=== PATIENT | male | born 1955 | race Caucasian/White ===

== ENCOUNTER 2018-07-28 19:00 | Emergency (ER) | payer MEDICAID ==
[~2018-07-28] VITALS: Ht 170.2 cm; Wt 101.0 kg
[~2018-07-28 19:00] MED LIST: AMOX1TAB12 PO; FERR325T18 PO; FURO-92 PO; METO25TA35 PO; POTA20TA14 PO; SULF-169 PO
[2018-07-28 19:36] LABS: BASOPHILS # (AUTO) 0.06 x10^3/uL (0-0.1); BASOPHILS % (AUTO) 1 % (0-1); EOSINOPHILS % (AUTO) 1 % (1-7); LYMPHOCYTES % (AUTO) 18 % (22-44); MD NO; MEAN CORPUSCULAR HEMOGLOBIN 30.1 pg (27.5-34.5); MEAN CORPUSCULAR VOLUME 88.7 fL (81-97); MEAN PLATELET VOLUME 7.8 fL (7.4-10.4); MONOCYTES # (AUTO) 0.69 x10^3/uL (0.2-0.8); MONOCYTES % (AUTO) 7 % (2-9); NEUTROPHILS # (AUTO) 7.56 x10^3/uL (1.8-6.8); NEUTROPHILS % (AUTO) 73 % (42-75); PLATELET COUNT 355 x10^3/uL (130-400); RED BLOOD COUNT 4.61 x10^6/uL (4.38-5.82); RED CELL DISTRIBUTION WIDTH 13.4 % (9.4-14.8)
--- NOTE | 2018-07-28 19:36 | NUR ---
THIS IS A 62 YO MALE WHO PRESENTS TO THE ER C/O HI BP AND KWONG. PT REPORTS KWONG IS DECREASED FROM WHEN HE ARRIVED AND HE IS NO LONGER EXPERIENCING BLURRED VISION. PT HAS BEEN ON A NEW BP MED FROM PCP X 1 DAY. PT AO X 4. SKIN PWD. RESP EVEN AND UNLABORED. PT ON CONT BP AND O2 MONITORS. PT AWARE THAT WE ARE WAITING FOR LAB/IMAGING RESULTS. CALL LIGHT WITHIN REACH. WILL CONT TO MONITOR PT.
[2018-07-28 19:43] LABS: ALBUMIN 3.9 g/dL (3.4-5.0); ANION GAP 8 mmol/L (5-15); CALCIUM 9.5 mg/dL (8.5-10.1); CHLORIDE 105 mmol/L (98-107)
[2018-07-28 19:47] LABS: TROPONIN I < 0.015 ng/mL (0.000-0.045)
--- NOTE | 2018-07-28 20:30 | NUR ---
PT CURRENTLY RESTING ON GURNEY. NAD NOTED. SKIN PWD. RESP EVEN AND EQAUL. PT AWARE THAT WE ARE WAITING FOR RECHECK BY PA. PT DENIES NEEDS AT THIS TIME. CALL LIGHT WITHIN REACH. WILL CONT TO MONITOR PT.
[2018-07-28 20:40] VITALS: BP 144/102
== END 2018-07-28 21:04 | disposition home or self-care (01) ==
LOC: ED 20:28
DX: I83.212 Varicose veins of right lower extremity with both ulcer of calf and inflammation (principal); L97.218 Non-pressure chronic ulcer of right calf with other specified severity; I10 Essential (primary) hypertension; I34.1 Nonrheumatic mitral (valve) prolapse; Z90.89 Acquired absence of other organs
CPT/HCPCS: 36415; 71046; 80048; 82040; 84484; 85025; 93005; 99284

== ENCOUNTER 2019-06-12 09:44 | Emergency (ER) | payer MEDICAID ==
[~2019-06-12] VITALS: Ht 170.2 cm; Wt 99.2 kg
[2019-06-12 10:03] VITALS: BP 169/95
--- NOTE | 2019-06-12 10:12 | NUR ---
PT HERE WITH C/O COUGH X 1 WEEK, STATES NON-PRODUCTIVE. PT STATES HAS INHALER AT HOME AND HAS BEEN USING IT TO NO RELIEF.
--- NOTE | 2019-06-12 10:30 | NUR ---
PT TO XRAY.
--- NOTE | 2019-06-12 10:37 | NUR ---
PT BACK FROM XRAY.
--- NOTE | 2019-06-12 10:51 | NUR ---
ALL RESULTS BACK AT THIS TIME, CHART UP FOR RECHECK.
--- NOTE | 2019-06-12 10:59 | NUR ---
Patient/Caregiver given discharge instructions and they have confirmed that they understand the instructions. Patient ambulatory with steady gait.
== END 2019-06-12 11:18 | disposition home or self-care (01) ==
LOC: ED 11:07
DX: R05 Cough (principal); I10 Essential (primary) hypertension
CPT/HCPCS: 71046; 99283

== ENCOUNTER 2019-09-15 09:08 | Inpatient (IN) | payer MEDICAID ==
[~2019-09-15] VITALS: Ht 170.2 cm; Wt 101.0 kg
[2019-09-15] MEDS ORDERED: ASPIRIN 325 MG TABLET PO ONE (09:22)
--- NOTE | 2019-09-15 09:23 | NUR ---
LOAN SUPERVISOR: CODE CARDIAC CALLED
--- NOTE | 2019-09-15 09:24 | NUR ---
9[phone] flores paged stat 924 dr flores in er and spoke with dr hickman 924 warehouse general laborer called and aware of pt
[2019-09-15] MEDS ORDERED: VERAPAMIL 2.5 MG/ML, 2ML ONE (09:27)
[2019-09-15] MEDS ORDERED: LIDOCAINE 2%, 20ML ONE (09:27)
[2019-09-15] MEDS ORDERED: TICAGRELOR 90 MG TABLET ONE (09:27)
[2019-09-15] MEDS ORDERED: FENTANYL PF 100 MCG/2ML ONE (09:27)
[2019-09-15] MEDS ORDERED: BIVALIRUDIN 250 MG ONE (09:27)
[2019-09-15] MEDS ORDERED: MIDAZOLAM 1 MG/ML, 5ML ONE (09:27)
[2019-09-15] MEDS ORDERED: HEPARIN 1,000 UNITS/ML, 10ML ONE (09:27)
--- NOTE | 2019-09-15 09:30 | NUR ---
THIS RN TO ASSIST WITH IV START DURING CODE CARDIAC
--- NOTE | 2019-09-15 09:32 | NUR ---
ALL COTHING REMOVED. PT ON CARDIAC AND VITALS MONITORS. LAB IN TO DRAW BLOOD. 2ND RN HERE TO ATTEMPT IV PLACEMENT. PT GIVEN ASA. CRITICAL CARE SUP IN COMPLETING PURPLE CODE CARDIAC FORM. CARDIOLOGY HAS BEEN IN TO ASSESS PT.
--- NOTE | 2019-09-15 09:40 | NUR ---
ULTRASOUND IV BEING ATTEMPTED.
[2019-09-15] MEDS ORDERED: DIPHENHYDRAMINE 50 MG/ML, 1ML ONE (09:58)
[2019-09-15] MEDS ORDERED: methylPREDNISolone SOD SUCC 125 MG/2 ML ONE (09:58)
[2019-09-15 10:07] LABS: BASOPHILS % (AUTO) 0 % (0-1); EOSINOPHILS # (AUTO) 0.02 x10^3/uL (0-0.4); EOSINOPHILS % (AUTO) 0 % (1-7); LYMPHOCYTES # (AUTO) 1.08 x10^3/uL (1-3.4); LYMPHOCYTES % (AUTO) 8 % (22-44); MD NO; MEAN CORPUSCULAR HGB CONC 33.5 g/dL (33.2-36.2); MEAN CORPUSCULAR VOLUME 89.4 fL (81-97); MONOCYTES # (AUTO) 0.95 x10^3/uL (0.2-0.8); MONOCYTES % (AUTO) 7 % (2-9); NEUTROPHILS % (AUTO) 86 % (42-75); PLATELET COUNT 353 x10^3/uL (130-400); RED BLOOD COUNT 4.85 x10^6/uL (4.38-5.82); RED CELL DISTRIBUTION WIDTH 14.5 % (9.4-14.8)
[2019-09-15] MEDS ORDERED: hydrALAzine 20 MG/ML, 1ML ONE (10:16)
[2019-09-15] MEDS ORDERED: METOPROLOL 1 MG/ML, 5ML ONE (10:16)
[2019-09-15 10:22] LABS: PROTHROMBIN TIME 10.6 Seconds (9.6-11.5)
[2019-09-15] MEDS ORDERED: LISINOPRIL 10 MG TABLET PO ONE (11:00)
[2019-09-15] MEDS ORDERED: ACETAMINOPHEN 325 MG TABLET PO PRN ×2 (11:00→12:00)
[2019-09-15] MEDS ORDERED: ONDANSETRON 2MG/ML, 2ML IVPush PRN ×2 (11:00→12:00)
[2019-09-15] MEDS ORDERED: ZOLPIDEM 5MG TABLET PO PRN (11:00)
[2019-09-15] MEDS ORDERED: BISACODYL 5 MG EC TABLET PO PRN (11:00)
[2019-09-15] MEDS ORDERED: LISINOPRIL 10 MG TABLET ONE (11:04)
[2019-09-15] MEDS ORDERED: ATORVASTATIN 80 MG TABLET ONE (11:05)
[2019-09-15 11:13] VITALS: BP 155/88
[2019-09-15] MEDS: SODIUM CHLORIDE 0.9% 1,000 ML IV SCH ×2 (11:23→18:40)
[2019-09-15] MEDS ORDERED: OXYcodone IR 5MG TABLET PO PRN (12:00)
[2019-09-15] MEDS ORDERED: ONDANSETRON ODT 4 MG PO PRN (12:00)
[2019-09-15] MEDS: HEPARIN 5,000 UNITS/ML, 1ML SQ SCH ×2 (12:00→20:14)
[2019-09-15] MEDS ORDERED: POLYETHYLENE GLYCOL 17 GM PACKET PO PRN (12:00)
[2019-09-15] MEDS ORDERED: LABETALOL 5MG/ML, 20ML IVPush PRN (12:00)
[2019-09-15] MEDS ORDERED: ENALAPRILAT 1.25 MG/ML, 2ML IVPush PRN (12:00)
[2019-09-15] MEDS: ATORVASTATIN 80 MG TABLET PO SCH (12:31)
[2019-09-15] MEDS: CARVEDILOL 6.25 MG TABLET PO SCH (17:48)
[2019-09-15] MEDS: TICAGRELOR 90 MG TABLET PO SCH (20:14)
[2019-09-16] MEDS: SODIUM CHLORIDE 0.9% 1,000 ML IV SCH ×2 (02:40→10:40)
[2019-09-16] MEDS: HEPARIN 5,000 UNITS/ML, 1ML SQ SCH ×3 (05:05→20:21)
[2019-09-16] MEDS: CARVEDILOL 6.25 MG TABLET PO SCH ×2 (05:05→18:32)
[2019-09-16 06:48] LABS: MEAN CORPUSCULAR HEMOGLOBIN 29.7 pg (27.5-34.5); MEAN CORPUSCULAR HGB CONC 33.4 g/dL (33.2-36.2); MEAN PLATELET VOLUME 8.2 fL (7.4-10.4); PLATELET COUNT 353 x10^3/uL (130-400); RED CELL DISTRIBUTION WIDTH 14.9 % (9.4-14.8)
[2019-09-16 06:55] LABS: ANION GAP 9 mmol/L (5-15); CALCIUM 8.9 mg/dL (8.5-10.1); CHLORIDE 106 mmol/L (98-107); CREATININE 0.82 mg/dL (0.7-1.3)
[2019-09-16 07:26] LABS: BASOPHILS # (AUTO) 0.01 x10^3/uL (0-0.1); BASOPHILS % (AUTO) 0 % (0-1); EOSINOPHILS # (AUTO) 0.12 x10^3/uL (0-0.4); EOSINOPHILS % (AUTO) 1 % (1-7); LYMPHOCYTES # (AUTO) 0.96 x10^3/uL (1-3.4); LYMPHOCYTES % (AUTO) 5 % (22-44); MD SCAN; MONOCYTES # (AUTO) 1.36 x10^3/uL (0.2-0.8); MONOCYTES % (AUTO) 7 % (2-9); NEUTROPHILS # (AUTO) 17.73 x10^3/uL (1.8-6.8); NEUTROPHILS % (AUTO) 88 % (42-75)
[2019-09-16] MEDS: ASPIRIN 81 MG TABLET EC PO SCH (08:46)
[2019-09-16] MEDS: SENNA/DOCUSATE TABLET PO SCH (08:46)
[2019-09-16] MEDS: TICAGRELOR 90 MG TABLET PO SCH ×2 (08:46→20:20)
[2019-09-16 17:55] VITALS: BP 149/96
[2019-09-16 18:58] VITALS: BP 113/74
[2019-09-16] MEDS: ATORVASTATIN 80 MG TABLET PO SCH (20:20)
[2019-09-17 00:11] VITALS: BP_SYST 117; BP_SYST 149; BP_DIAS 102; BP_DIAS 72
[2019-09-17] MEDS: HEPARIN 5,000 UNITS/ML, 1ML SQ SCH (06:05)
[2019-09-17] MEDS: CARVEDILOL 6.25 MG TABLET PO SCH (06:06)
[2019-09-17 06:20] LABS: BASOPHILS # (AUTO) 0.02 x10^3/uL (0-0.1); BASOPHILS % (AUTO) 0 % (0-1); EOSINOPHILS # (AUTO) 0.07 x10^3/uL (0-0.4); EOSINOPHILS % (AUTO) 1 % (1-7); LYMPHOCYTES # (AUTO) 1.28 x10^3/uL (1-3.4); LYMPHOCYTES % (AUTO) 11 % (22-44); MD NO; MEAN CORPUSCULAR HEMOGLOBIN 29.3 pg (27.5-34.5); MEAN CORPUSCULAR HGB CONC 33.3 g/dL (33.2-36.2); MEAN CORPUSCULAR VOLUME 88.2 fL (81-97); MEAN PLATELET VOLUME 8.3 fL (7.4-10.4); MONOCYTES # (AUTO) 0.95 x10^3/uL (0.2-0.8); MONOCYTES % (AUTO) 8 % (2-9); NEUTROPHILS # (AUTO) 9.22 x10^3/uL (1.8-6.8); NEUTROPHILS % (AUTO) 80 % (42-75); PLATELET COUNT 290 x10^3/uL (130-400); RED BLOOD COUNT 4.61 x10^6/uL (4.38-5.82); RED CELL DISTRIBUTION WIDTH 14.6 % (9.4-14.8)
[2019-09-17 06:50] VITALS: BP 135/83
[2019-09-17] MEDS ORDERED: LOSARTAN 25MG TABLET PO SCH (09:00)
[2019-09-17] MEDS: SENNA/DOCUSATE TABLET PO SCH (09:00)
[2019-09-17] MEDS: TICAGRELOR 90 MG TABLET PO SCH (09:24)
[2019-09-17] MEDS: ASPIRIN 81 MG TABLET EC PO SCH (09:25)
[2019-09-17] MEDS ORDERED: ASPI81TA45 PO (09:59)
[2019-09-17] MEDS ORDERED: ATOR-2 PO (09:59)
[2019-09-17] MEDS ORDERED: LOSA25TA25 PO (09:59)
[2019-09-17] MEDS ORDERED: TICA90TA PO (09:59)
[2019-09-17] MEDS ORDERED: CARV6.2512 PO (09:59)
== END 2019-09-17 11:42 | disposition home or self-care (01) | DRG 174 ==
LOC: ED 09:49 → EDIP 11:11 → CCU 12:10 → 5SO 09-16 14:42
PROVIDERS: ADMIT Internal Medicine; ATTEND Internal Medicine
PROC: 4A023N7 Measurement of Cardiac Sampling and Pressure, Left Heart, Percutaneous Approach (ICD-10-PCS; principal; 2019-09-15)
PROC: 027034Z Dilation of Coronary Artery, One Artery with Drug-eluting Intraluminal Device, Percutaneous Approach (ICD-10-PCS; 2019-09-15)
PROC: B211YZZ Fluoroscopy of Multiple Coronary Arteries using Other Contrast (ICD-10-PCS; 2019-09-15)
PROC: B215YZZ Fluoroscopy of Left Heart using Other Contrast (ICD-10-PCS; 2019-09-15)
DX: I21.09 ST elevation (STEMI) myocardial infarction involving other coronary artery of anterior wall (principal); I50.31 Acute diastolic (congestive) heart failure; E87.1 Hypo-osmolality and hyponatremia; I27.20 Pulmonary hypertension, unspecified; D72.829 Elevated white blood cell count, unspecified; I11.0 Hypertensive heart disease with heart failure; F41.9 Anxiety disorder, unspecified; I35.1 Nonrheumatic aortic (valve) insufficiency; E16.2 Hypoglycemia, unspecified; E78.5 Hyperlipidemia, unspecified; I25.2 Old myocardial infarction; Z87.891 Personal history of nicotine dependence; Z88.0 Allergy status to penicillin; Z91.041 Radiographic dye allergy status; Z88.5 Allergy status to narcotic agent
CPT/HCPCS: 36415; 71045; 80047; 80048; 84484; 85025; 85610; 85730; 87081; 93005; 93458; 99156; 99157; 99291; C1769; C1894; C8929; G0378; J0583; J1644; J2250; J3010; Q9957; C1725; C1874; C1887; J0360; J1200; J2930; Q9967

== ENCOUNTER 2019-10-20 13:59 | Emergency (ER) | payer MEDICAID ==
[~2019-10-20] VITALS: Ht 170.2 cm; Wt 99.7 kg
[~2019-10-20 13:59] MED LIST changes: +ASPI81TA45 PO; +ATOR-2 PO; +CARV6.2512 PO; +LOSA25TA25 PO; +TICA90TA PO
--- NOTE | 2019-10-20 15:18 | NUR ---
TROUBLE CLERK: PT AMBULATORY TO ROOM FROM LOBBY
--- NOTE | 2019-10-20 15:33 | NUR ---
THIS IS A 63 YO MALE COMING IN FOR "I JUST STARTED FEELING SHITTY TODAY, LIKE 4 HOURS AGO", C/O FEELING CLAMMY, HIGH BP AT HOME 180'S/110'S. C/O "I HAD CHEST PAIN FOR LIKE 30 SECONDS THEN IT WENT AWAY, AND THE SHORTNESS OF BREATH COMES AND GOES". DENIES N/V/D OR KWONG. LUNG SOUNDS CLEAR THROUGHOUT. RECENT STENT PLACEMENT IN AUGUST 2019. ALL MONITORING IN PLACE, NSR ON MONITOR. CALL LIGHT IN REACH
--- NOTE | 2019-10-20 16:04 | NUR ---
UA COLLECTED AND SENT
[2019-10-20 16:10] LABS: BASOPHILS # (AUTO) 0.03 x10^3/uL (0-0.1); BASOPHILS % (AUTO) 0 % (0-1); EOSINOPHILS # (AUTO) 0.07 x10^3/uL (0-0.4); EOSINOPHILS % (AUTO) 1 % (1-7); LYMPHOCYTES # (AUTO) 1.09 x10^3/uL (1-3.4); LYMPHOCYTES % (AUTO) 13 % (22-44); MD NO; MEAN CORPUSCULAR HEMOGLOBIN 29.7 pg (27.5-34.5); MEAN CORPUSCULAR HGB CONC 33.5 g/dL (33.2-36.2); MEAN CORPUSCULAR VOLUME 88.8 fL (81-97); MONOCYTES # (AUTO) 0.64 x10^3/uL (0.2-0.8); MONOCYTES % (AUTO) 7 % (2-9); NEUTROPHILS # (AUTO) 6.81 x10^3/uL (1.8-6.8); NEUTROPHILS % (AUTO) 79 % (42-75); PLATELET COUNT 308 x10^3/uL (130-400); RED CELL DISTRIBUTION WIDTH 13.8 % (9.4-14.8)
[2019-10-20 16:23] LABS: MICROSCOPIC NOT IND
[2019-10-20 16:24] LABS: ALANINE AMINOTRANSFERASE 29 U/L (12-78); ALBUMIN 3.5 g/dL (3.4-5.0); ANION GAP 7 mmol/L (5-15); CALCIUM 8.7 mg/dL (8.5-10.1); CHLORIDE 109 mmol/L (98-107); CREATININE 0.86 mg/dL (0.7-1.3)
[2019-10-20 16:28] LABS: ALKALINE PHOSPHATASE 111 U/L (45-117); BILIRUBIN,TOTAL 0.5 mg/dL (0.2-1.0); TOTAL PROTEIN 7.8 g/dL (6.4-8.2); TROPONIN I < 0.015 ng/mL (0.000-0.045)
[2019-10-20] MEDS ORDERED: LORazepam 1MG TABLET ONE (16:41)
[2019-10-20 16:48] VITALS: BP 135/93
--- NOTE | 2019-10-20 16:50 | NUR ---
PATIENT MEDICATED PER EMAR, TOLERATED WELL.
[2019-10-20] MEDS ORDERED: LORazepam 1MG TABLET PO ONE (17:00)
--- NOTE | 2019-10-20 17:00 | NUR ---
Patient given discharge instructions and they have confirmed that they understand the instructions. Patient ambulatory with steady gait.
== END 2019-10-20 17:03 | disposition home or self-care (01) ==
LOC: ED 16:22
DX: F43.9 Reaction to severe stress, unspecified (principal); R07.89 Other chest pain; I10 Essential (primary) hypertension; I51.7 Cardiomegaly; Z90.89 Acquired absence of other organs
CPT/HCPCS: 36415; 71046; 80053; 81003; 83880; 84484; 85025; 93005; 99285

== ENCOUNTER 2020-02-23 19:04 | Emergency (ER) | payer MEDICAID ==
[~2020-02-23] VITALS: Ht 170.2 cm; Wt 96.4 kg
[2020-02-23 19:18] VITALS: BP 189/126
--- NOTE | 2020-02-23 19:23 | NUR ---
business analysis analyst: Patient being "PIT" by ERP. BP high. Patient has a hx of HTN which he takes meds for. Patient to be dc from triage.
== END 2020-02-23 19:38 | disposition home or self-care (01) ==
LOC: ED 19:07
DX: R42 Dizziness and giddiness (principal); R53.1 Weakness; Z11.59 Encounter for screening for other viral diseases; I10 Essential (primary) hypertension
CPT/HCPCS: 36415; 87635; 99283

== ENCOUNTER 2020-06-09 15:45 | Emergency (ER) | payer MEDICAID ==
[~2020-06-09] VITALS: Ht 170.2 cm; Wt 93.0 kg
--- NOTE | 2020-06-09 16:10 | NUR ---
pt ambulated to room from [facility] with a steady gait.
--- NOTE | 2020-06-09 16:53 | NUR ---
dc instructions reviewed
[2020-06-09 16:54] VITALS: BP 142/89
== END 2020-06-09 17:03 | disposition home or self-care (01) ==
LOC: ED 16:58
DX: I10 Essential (primary) hypertension (principal); Z20.822 Contact with and (suspected) exposure to COVID-19; Z76.0 Encounter for issue of repeat prescription; R05 Cough; I25.2 Old myocardial infarction; Z90.49 Acquired absence of other specified parts of digestive tract
CPT/HCPCS: 71045; 87635; 93005; 99285